=== PATIENT | female | born 1955 ===

== ENCOUNTER 2025-08-22 21:38 | Emergency (ER) | payer SELFPAY ==
[2025-08-22 21:45] VITALS: BP 127/68; PULSE 81; RESP 18; TEMP 36.8; O2SAT 98
--- NOTE | 2025-08-22 22:46 | PC.NURSE ---
Pt walked out before seeing provider
== END 2025-08-22 23:17 | disposition left against medical advice (07) ==
LOC: ANHED 23:09
DX: R07.89 Other chest pain (principal)
CPT/HCPCS: 99199